=== PATIENT | female | born 1950 | race Two or more races ===

== ENCOUNTER 2018-02-26 13:07 | Emergency (ER) | payer MEDICARE, OTHER ==
[~2018-02-26] VITALS: Ht 165.1 cm; Wt 77.0 kg
--- NOTE | 2018-02-26 13:37 | NUR ---
HX VIRAL PNEU UNRESOLVED YONG IBARRA WAS IN HOSP IN [place]
[2018-02-26] MEDS ORDERED: ALBUTEROL/IPRATROPIUM 2.5MG/0.5MG, 3 ML ONE (13:54)
[2018-02-26] MEDS ORDERED: ALBUTEROL/IPRATROPIUM 2.5MG/0.5MG, 3 ML NPPB ONE (14:00)
[2018-02-26 15:04] VITALS: BP 114/61
--- NOTE | 2018-02-26 15:06 | NUR ---
D/C PER MD. PT IS ALERT AND ORIENTED AND AMBULATORY WIHTOUT ASSIST. O2 SAT IS 93-95 % WHILE SITTING ON GURNEY.
== END 2018-02-26 15:29 | disposition home or self-care (01) ==
LOC: ED 15:23
DX: B34.9 Viral infection, unspecified (principal)
CPT/HCPCS: 71046; 93005; 94640; 99283; J7620

== ENCOUNTER → 2018-04-25 | Outpatient (CLI) | payer MEDICARE, OTHER | END | disposition home or self-care (01) | LOC: RAD 11:41 | PROVIDERS: ATTEND Internal Medicine | DX: J18.1 Lobar pneumonia, unspecified organism (principal) | CPT/HCPCS: 71046 ==